=== PATIENT | male | born 1960 | race Caucasian/White ===

== ENCOUNTER 2021-04-15 09:06 | Observation (INO) ==
[2021-04-15] MEDS ORDERED: ASPIRIN CHEW 324 MG PO STA (09:34)
--- NOTE | 2021-04-15 09:57 | XRay Report ---
XR chest 1V portable CLINICAL HISTORY: Atypical chest pain COMPARISON STUDY: No previous studies for comparison. FINDINGS: The heart is mildly enlarged. There is no failure. There is no focal pulmonary consolidatio n. There are no pleural effusions. No pneumothorax is visualized.[ IMPRESSION: No active disease in the chest. ACT 112: Negative or not required by law. Electronically signed by: Shayne Bauer M.D. 04/15/2021 9:55 AM
--- NOTE | 2021-04-15 10:06 | Emergency Department Note ---
Impression & Plan Atrial fibrillation with rapid ventricular response, PAF (paroxysmal atrial fibrillation), Chest pain ED Provider Note NAME: RENAE RICH AGE: 60 SEX: M : 1960 ARRIVES VIA: Walk-In INFORMANT: Patient, ED PROVIDER(S): Shane Pedro DO CHIEF COMPLAINT: Chest pain HPI: The patient is a 60-year-old male who presented to the emergency department for an evaluation of chest pain. The patient has a history of hypertension. He does not have a history of cardiac disease established. He does not have a family doctor locally as he moved to the area last fall. The patient states he started noticing symptoms over the course of the last few days. The patient states he notices chest pain in the right upper chest wall. It also goes across his anterior chest. He sometimes notices palpitations and fast heart rate. He also notices some shortness of breath with exertion. He is not had similar symptoms in the past. He denies having any nausea or vomiting. He denies having any abdominal pain. He is noticed no lower extremity swelling. He does not a history of DVT or pulmonary embolism in the past. The patient states he went to [facility] and was referred to the emergency department because of his symptoms. He did have a Covid swab at that time which was negative. He does complain of a slight cough but it is not productive. He has had no fever or exposure to COVID-19 as far as he knows. The patient states his symptoms are significantly improved at this time. He was using ibuprofen with some relief. ROS: See above HPI for pertinent positives & negatives. A total of 10 systems reviewed and were otherwise negative. PAST MEDICAL HISTORY: See Below PAST SURGICAL HISTORY: See Below FAMILY HISTORY: See Below SOCIAL HISTORY: See Below HOME MEDICATIONS: See Below ALLERGIES: See Below VITALS: See Below PHYSICAL EXAMINATION: GENERAL: Patient is awake alert in no acute distress patient is resting comfortably and showing no signs of anxiety EYES: The conjunctivae are clear. The pupils are round and reactive. EARS, NOSE, MOUTH AND THROAT: The nose is without any evidence of any deformity. NECK: The neck is nontender and supple. RESPIRATORY: Normal respiratory effort is noted there is no evidence of wheezing rhonchi or rales CARDIOVASCULAR: Regular rate and rhythm noted there no murmurs rubs or gallops normal S1 normal S2. GASTROINTESTINAL: The abdomen is soft. Abdomen is nontender. MUSCULOSKELETAL/EXTREMITIES: There is no evidence of gross deformity full range of motion is noted in the hips and shoulders. SKIN: There is no obvious evidence of any rash. There are no petechiae, pallor or cyanosis noted. NEUROLOGIC: Patient is awake alert and oriented x3. MEDICAL DECISION MAKING: The patient is a 60-year-old male who presented to the emergency department for an evaluation of chest pain. The patient describes right-sided chest pain which was worse with inspiration. I discussed the patient's laboratory and radi ographic studies with him. He did have episodes of palpitations as well. While in the emergency department on the monitor he was noted to have episodes of paroxysmal atrial fibrillation. The patient's D-dimer was negative. Troponin did not show an elevation despite having ongoing symptoms greater than 6 hours. I do feel the patient's symptoms was likely due to his atrial fibrillation with rapid ventricular response. I discussed his case with [facility] The patient was treated with IV Cardizem. I will defer anticoagulation to the admitting team. The patient was agreeable with the plan. Triage Nursing notes reviewed. Prior medical records reviewed Vital Signs: reviewed and remarkable for elevated blood pressure and tachycardia. Differential diagnosis: Cardiac ischemia, aortic dissection, pulmonary embolism, pneumothorax, pneumonia, pericarditis, myocarditis, esophageal rupture, GERD, cholecystitis, pancreatitis, musculoskeletal, as well as other pathologies. ER treatment provided: See below Diagnostics interpreted by me: ECG: EKG was obtained in the emergency department. My interpretation is normal sinus rhythm at 81 bpm. There was sinus arrhythmia noted. Lateral ST depressions were noted. There is no ectopy. This was compared to a tracing that was done at [facility]. There is no significant changes noted. A second EKG was obtained in the emergency department. My interpretation is atrial flutter at 145 bpm. This was a change compared to the earlier tracing. Cardiac Monitoring: An order was placed for continuous cardiac monitoring. The monitor shows a rate of 80 bpm with sinus rhythm. Laboratory studies: As stated above and show below. Imaging studies: See below Consultation(s): 1045: I discussed this case with Dr. Luz. He is agreed to see the patient in the emergency department for further management and disposition. He [facility]. 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 Beliefs That Will Affect Care: None Current Living Situation: Spouse Other Information That Helps Us Care for You: No Feels Safe at Home: Yes Safety Concerns: Feels Safe At This Time Assistive Devices: BiPap and Glasses Allergies Allergies Allergy/AdvReac Type Severity Reaction Status Date / Time No Known Allergies Allergy Unverified 04/15/21 09:52 Home Meds Home Medications Medication Instructions Recorded Confirmed amlodipine 10 mg tablet 10 mg PO DAILY 04/15/21 04/15/21 atorvastatin 20 mg tablet 20 mg PO DAILY 04/15/21 04/15/21 azelastine 137 mcg (0.1 %) nasal 1 spray INTRANASAL DAILY 04/15/21 04/15/21 spray aerosol lisinopril 20 1 tab PO DAILY 04/15/21 04/15/21 mg-hydrochlorothiazide 25 mg tablet lorazepam 0.5 mg tablet 0.5 mg PO DAILY PRN 04/15/21 04/15/21 sertraline 100 mg tablet 50 mg PO DAILY 04/15/21 04/15/21 tadalafil 20 mg tablet 20 mg PO DAILY PRN 04/15/21 04/15/21 Results & Data (ED) Vital Signs Vital Signs - 24 hr 04/15/21 09:10 04/15/21 09:50 04/15/21 11:00 Temperature 36.8 C Temperature Source Skin Pulse Rate 80 92 H Pulse Rate [Apical] 140 H Pulse Rhythm Regular Pulse Rhythm [Apical] Irregular Pulse Strength [Apical] Respiratory Rate 18 16 Respiratory Effort / Characteristics Non-Labored Respiratory Depth Normal Blood Pressure 160/89 H Blood Pressure [Left Arm] 137/88 Blood Pressure Mean 112 Blood Pressure Mean [Left Arm] 104 Pulse Oximetry 97 98 98 Oxygen Delivery Method Room Air Room Air Sepsis Recent Fever Within 48 Hours No Sepsis New/Unexplained Change in Mental Status No Sepsis Action Taken by Nursing No Action Required 04/15/21 11:08 04/15/21 11:30 Temperature Temperature Source Pulse Rate Pulse Rate [Apical] 80 84 Pulse Rhythm Pulse Rhythm [Apical] Regular Regular Pulse Strength [Apical] Normal Respiratory Rate 16 16 Respiratory Effort / Characteristics Non-Labored Non-Labored Respiratory Depth Normal Normal Blood Pressure Blood Pressure [Left Arm] 174/88 H 138/78 Blood Pressure Mean Blood Pressure Mean [Left Arm] 116 98 Pulse Oximetry 98 97 Oxygen Delivery Method Room Air Room Air Sepsis Recent Fever Within 48 Hours Sepsis New/Unexplained Change in Mental Status Sepsis Action Taken by Nursing Laboratory Data Result diagrams: 04/15/21 09:50 04/15/21 09:50 Lab Results 04/15/21 04/15/21 04/15/21 Range/Units 09:50 09:50 09:50 WBC 8.88 (4.8-10.8) K/uL RBC 5.17 (4.7-6.1) M/uL Hgb 14.8 (14.0-18.0) g/dL Hct 43.1 (42-52) % MCV 83.4 (80-100) fL MCH 28.6 (25-34) pg MCHC 34.3 (32-36) g/dL RDW Std Deviation 42.0 (36.4-46.3) fL RDW Coeff of Gonzalo 13.8 (11.5-14.5) % Plt Count 220 (130-400) K/uL MPV 10.0 (7.4-10.4) fL Immature Gran % (Auto) 0.6 % Neut % (Auto) 75.3 % Lymph % (Auto) 15.5 % [place] % (Auto) 7.9 % Eos % (Auto) 0.5 % Baso % (Auto) 0.2 % Neut # (Auto) 6.69 H (1.4-6.5) K/uL Lymph # (Auto) 1.38 (1.2-3.4) K/uL [place] # (Auto) 0.70 H (0.11-0.59) K/uL Eos # (Auto) 0.04 (0-0.5) K/uL Baso # (Auto) 0.02 (0-0.2) K/uL Immature Gran # (Auto) 0.05 H (0.00-0.02) K/uL PT 10.5 (9.0-12.0) Seconds INR 1.0 (0.9-1.1) APTT 28.2 (21.0-31.0) Seconds PTT Ratio 1.1 D-Dimer 450 (0-500) ug/L FEU Sodium 137 (136-145) mmol/L Potassium 3.5 (3.5-5.1) mmol/L Chloride 103 (98-107) mmol/L Carbon Dioxide 28 (21-32) mmol/L Anion Gap 6.0 (3-11) BUN 14 (7-18) mg/dl Creatinine 1.16 (0.6-1.4) mg/dl Est Cr Clr Drug Dosing 113.9 ml/min Est GFR ( Amer) 78.9 ml/min Est GFR (Non-Af Amer) 68.1 ml/min BUN/Creatinine Ratio 12.3 (10-20) Glucose 103 H (70-99) mg/dl Calcium 9.3 (8.5-10.1) mg/dl Magnesium (1.8-2.4) mg/dl Total Bilirubin 1.1 H (0.2-1) mg/dl AST 20 (15-37) U/L ALT 24 (12-78) U/L Alkaline Phosphatase 62 (45-117) U/L Troponin I < 0.015 (0-0.045) ng/ml Total Protein 7.7 (6.4-8.2) gm/dl Albumin 3.7 (3.4-5.0) gm/dl Globulin 4.0 (2.5-4.0) gm/dl Albumin/Globulin Ratio 0.9 (0.9-2) TSH (0.300-4.500) uIu/ml COVID-19 Eval Order SARS-CoV-2 (PCR) (Negative) 04/15/21 04/15/21 04/15/21 Range/Units 09:50 11:15 11:15 WBC (4.8-10.8) K/uL RBC (4.7-6.1) M/uL Hgb (14.0-18.0) g/dL Hct (42-52) % MCV (80-100) fL MCH (25-34) pg MCHC (32-36) g/dL RDW Std Deviation (36.4-46.3) fL RDW Coeff of Gonzalo (11.5-14.5) % Plt Count (130-400) K/uL MPV (7.4-10.4) fL Immature Gran % (Auto) % Neut % (Auto) % Lymph % (Auto) % [place] % (Auto) % Eos % (Auto) % Baso % (Auto) % Neut # (Auto) (1.4-6.5) K/uL Lymph # (Auto) (1.2-3.4) K/uL [place] # (Auto) (0.11-0.59) K/uL Eos # (Auto) (0-0.5) K/uL Baso # (Auto) (0-0.2) K/uL Immature Gran # (Auto) (0.00-0.02) K/uL PT (9.0-12.0) Seconds INR (0.9-1.1) APTT (21.0-31.0) Seconds PTT Ratio D-Dimer (0-500) ug/L FEU Sodium (136-145) mmol/L Potassium (3.5-5.1) mmol/L Chloride (98-107) mmol/L Carbon Dioxide (21-32) mmol/L Anion Gap (3-11) BUN (7-18) mg/dl Creatinine (0.6-1.4) mg/dl Est Cr Clr Drug Dosing ml/min Est GFR ( Amer) ml/min Est GFR (Non-Af Amer) ml/min BUN/Creatinine Ratio (10-20) Glucose (70-99) mg/dl Calcium (8.5-10.1) mg/dl Magnesium 2.3 (1.8-2.4) mg/dl Total Bilirubin (0.2-1) mg/dl AST (15-37) U/L ALT (12-78) U/L Alkaline Phosphatase (45-117) U/L Troponin I (0-0.045) ng/ml Total Protein (6.4-8.2) gm/dl Albumin (3.4-5.0) gm/dl Globulin (2.5-4.0) gm/dl Albumin/Globulin Ratio (0.9-2) TSH 1.150 (0.300-4.500) uIu/ml COVID-19 Eval Order Covid19 at [facility] SARS-CoV-2 (PCR) NEGATIVE (Negative) Administered Medications Metoprolol Tartrate (Metoprolol Tartrate 25 Mg Tab) 25 mg PO BID DOT Stop: 05/15/21 14:20 Last Admin: 04/15/21 16:01 Dose: 25 mg Documented by: [id number] Miscellaneous (Azelastine: Order Awaiting Action) 1 ea N/A QS DOT Stop: 05/15/21 15:59 Last Admin: 04/15/21 15:35 Dose: Not Given Documented by: [id number] Discontinued Medications Aspirin (Aspirin Chew 324 Mg) 324 mg PO NOW STA Stop: 04/15/21 09:35 Last Admin: 04/15/21 09:55 Dose: 324 mg Documented by: [id number] Diltiazem HCl (Diltiazem Hcl 5 Mg/Ml 5 Ml Vial) 20 mg IV NOW STA Stop: 04/15/21 10:34 Last Admin: 04/15/21 11:01 Dose: 20 mg Documented by: [id number] Cosigned by: [id number] Imaging Data Radiologist's Impression: Chest X-Ray 04/15/21 09:27 XR chest 1V portable CLINICAL HISTORY: Atypical chest pain COMPARISON STUDY: No previous studies for comparison. FINDINGS: The heart is mildly enlarged. There is no failure. There is no focal pulmonary consolidation. There are no pleural effusions. No pneumothorax is visualized.[ IMPRESSION: No active disease in the chest. ACT 112: Negative or not required by law. Electronically signed by: Shayne Bauer M.D. 04/15/2021 9:55 AM Discharge Plan Visit Data Chief Complaint: Cardiac Assessment Stated Complaint: HIGH BP, TACHY, ABNORMAL EKG ED Provider: Shane Pedro Discharge Problem: Atrial fibrillation with rapid ventricular response, PAF (paroxysmal atrial fibrillation), Chest pain Patient Disposition: Admitted As Inpatient Condition: Good Discharge Instructions Interventions: ED Discharge Assessment Last Done: 04/15/21 14:37
[2021-04-15 10:07] LABS: Basophils # (auto) 0.02 K/uL (0-0.2); Basophils % (auto) 0.2 %; Eosinophils # (auto) 0.04 K/uL (0-0.5); Eosinophils % (auto) 0.5 %; Hematocrit (blood only) 43.1 % (42-52); Hemoglobin 14.8 g/dL (14.0-18.0); Immature Granulocytes # (auto) 0.05 K/uL (0.00-0.02); Immature Granulocytes % (auto) 0.6 %; Lymphocytes # (auto) 1.38 K/uL (1.2-3.4); Lymphocytes % (auto) 15.5 %; Mean Corpuscular Hemoglobin 28.6 pg (25-34); Mean Corpuscular Hgb Conc 34.3 g/dL (32-36); Mean Corpuscular Volume 83.4 fL (80-100); Monocytes % (auto) 7.9 %; Neutrophils # (auto) 6.69 K/uL (1.4-6.5); Neutrophils % (auto) 75.3 %; Platelet Count 220 K/uL (130-400); RDW Coefficient of Variation 13.8 % (11.5-14.5); Red Blood Count 5.17 M/uL (4.7-6.1); White Blood Count 8.88 K/uL (4.8-10.8)
[2021-04-15 10:19] LABS: D Dimer 450 ug/L FEU (0-500); Partial Thromboplastin Ratio 1.1; Partial Thromboplastin Time 28.2 Seconds (21.0-31.0); Prothrombin Time 10.5 Seconds (9.0-12.0)
[2021-04-15 10:25] LABS: Alanine Aminotransferase 24 U/L (12-78); Albumin Level 3.7 gm/dl (3.4-5.0); Aspartate Aminotransferase 20 U/L (15-37); BUN Creatinine Ratio 12.3 (10-20); Blood Urea Nitrogen 14 mg/dl (7-18); Calcium 9.3 mg/dl (8.5-10.1); Carbon Dioxide 28 mmol/L (21-32); Chloride 103 mmol/L (98-107); Creatinine Clr Calc Pharmacy 113.9 ml/min; Est GFR (African American) 78.9 ml/min; Est GFR (Non-African American) 68.1 ml/min; Glucose 103 mg/dl (70-99); Potassium 3.5 mmol/L (3.5-5.1); Sodium 137 mmol/L (136-145)
[2021-04-15 10:30] LABS: Albumin Globulin Ratio 0.9 (0.9-2); Alkaline Phosphatase 62 U/L (45-117); Bilirubin,Total 1.1 mg/dl (0.2-1); Total Protein 7.7 gm/dl (6.4-8.2); Troponin I < 0.015 ng/ml (0-0.045)
[2021-04-15] MEDS ORDERED: dilTIAZem HCl 5 MG/ML 5 ML VIAL IV STA (10:33)
--- NOTE | 2021-04-15 11:25 | History & Physical Report ---
Date of Service April 15, 2021 Assessment & Plan (1) PAF (paroxysmal atrial fibrillation): Plan: Placed in monitored observation on I will start metoprolol 25 mg every 12 hours Check 2D echo Trend troponins TSH ordered and is pending [id number] were calculated at 1 with available information. Patient was given full dose aspirin, will avoid full dose anticoagulation for now. Will ask cardiology to eval for further recommendations (2) Sleep apnea with use of continuous positive airway pressure (CPAP): Plan: Will order CPAP for use as inpatient Considering new symptoms and times since I last sleep study, may need to reevaluate with titration study as an outpatient (3) History of hypertension: Plan: For now, will continue amlodipine 10 mg, lisinopril/hydrochlorothiazide 20/25 Addition of metoprolol as noted above, adjust further as needed (4) History of high cholesterol: Plan: Continue atorvastatin 20 mg Check fasting lipid panel, [id number] History of Present Illness Chief Complaint: Chest pain Primary Care Provider: NO PCP This is a 60-year-old male with past medical history of hypertension, hyperlipi demia, and sleep apnea on CPAP that presents today complaining of intermittent chest pain. Patient is a good historian. Patient tells me that over the past several days he has been having very inter mittent chest pain. This not related to activity. It is vague and feels almost like reflux. It tends to be self-limited. He does occasionally notice palpitation with this but denies any diaphoresis, headache, or lightheadedness with this. There may be some mild dyspnea exertion during these periods of time. He has not noticed any lower extremity edema, cough, or other issues. Patient is new to the area and does not have a primary care provider. He went to [facility] and describes symptoms those sent to the emergency room for further evaluation. In the ER, patient was initially found to be asymptomatic with normal work-up, but then had an episode of chest pain. Monitor showed atrial fibrillation with a rate of 145 and as symptoms were similar to those on presentation. Patient se lf converted back to normal sinus rhythm. During my interview, I did notice several periods that were atrial fibrillation with a rapid rate that were also supplemented. At this time, the patient is no acute distress. He is anxious considering diagnosis. Further recollection, he thinks he may have been having symptoms that were mild but similar to this in the past. Of note, patient does have a history of sleep apnea but he tells me he only had one sleep study back in 2002 when the CPAP was prescribed and has not had a reevaluation since. Allergies Allergy/AdvReac Type Severity Reaction Status Date / Time No Known Allergies Allergy Unverified 04/15/21 09:52 Home Medications Medication Instructions Recorded Confirmed Type amlodipine 10 mg tablet 10 mg PO DAILY 04/15/21 04/15/21 History atorvastatin 20 mg tablet 20 mg PO DAILY 04/15/21 04/15/21 History azelastine 137 mcg (0.1 %) nasal 1 spray INTRANASAL DAILY 04/15/21 04/15/21 History spray aerosol lisinopril 20 1 tab PO DAILY 04/15/21 04/15/21 History mg-hydrochlorothiazide 25 mg tablet lorazepam 0.5 mg tablet 0.5 mg PO DAILY PRN 04/15/21 04/15/21 History sertraline 100 mg tablet 50 mg PO DAILY 04/15/21 04/15/21 History tadalafil 20 mg tablet 20 mg PO DAILY PRN 04/15/21 04/15/21 History Past Med/Surg History Medical History (Updated 04/15/21 @ 11:30 by Greg Luz DO) History of high cholesterol History of hypertension Surgical History History of tonsillectomy Social History Smoking Status: Never smoker Feels Safe at Home: Yes Review of Systems Constitutional: no fever, no chills, no weakness, no weight loss and no weight gain Eyes: as per Subjective / HPI Respiratory: + dyspnea on exertion; no cough, no chest congestion, no dyspnea, no hemoptysis and no pain on inspiration Cardiovascular: + chest pain and + dyspnea on exertion; no orthopnea, no palpitations, no lightheadedness, no syncope, no edema and no calf pain Gastrointestinal: no abdominal pain, no nausea, no vomiting, no constipation and no diarrhea/loose stools Musculoskeletal: no back pain, no neck pain, no joint pain, no stiffness and no myalgia Integumentary: no rash Neurologic: no gait abnormality, no unsteadiness, no falls and no generalized weakness Physical Exam Constitutional: cooperative; no acute distress Neck: trachea midline, no thyromegaly Respiratory: normal respiratory effort Auscultation: lungs clear to auscultation bilaterally; no crackles, no rales, no rhonchi and no wheezes Cardiovascular: Rate/Rhythm: regular rate and regular rhythm Heart Sounds: normal S1 and normal S2 Gastrointestinal (Abdomen): Inspection/Auscultation: abdomen normal to inspection Percussion/Palpation: abdomen soft; abdomen nontender, no guarding, abdomen not rigid and no hepatosplenomegaly Skin: no rashes, warm and dry Results & Data Results & Data ([facility]) Vital Signs (Past 12 Hours) Vital Signs Temp Pulse Pulse Resp BP BP Pulse Ox 04/15/21 11:08 80 16 174/88 H 98 04/15/21 11:00 92 H 140 H 16 137/88 98 04/15/21 09:50 98 04/15/21 09:10 36.8 C 80 18 160/89 H 97 Laboratory Results Laboratory Results WBC 8.88 K/uL (4.8-10.8) 04/15/21 09:50 RBC 5.17 M/uL (4.7-6.1) 04/15/21 09:50 Hgb 14.8 g/dL (14.0-18.0) 04/15/21 09:50 Hct 43.1 % (42-52) 04/15/21 09:50 MCV 83.4 fL (80-100) 04/15/21 09:50 MCH 28.6 pg (25-34) 04/15/21 09:50 MCHC 34.3 g/dL (32-36) 04/15/21 09:50 RDW Std Deviation 42.0 fL (36.4-46.3) 04/15/21 09:50 RDW Coeff of Gonzalo 13.8 % (11.5-14.5) 04/15/21 09:50 Plt Count 220 K/uL (130-400) 04/15/21 09:50 MPV 10.0 fL (7.4-10.4) 04/15/21 09:50 Immature Gran % (Auto) 0.6 % 04/15/21 09:50 Neut % (Auto) 75.3 % 04/15/21 09:50 Lymph % (Auto) 15.5 % 04/15/21 09:50 [place] % (Auto) 7.9 % 04/15/21 09:50 Eos % (Auto) 0.5 % 04/15/21 09:50 Baso % (Auto) 0.2 % 04/15/21 09:50 Neut # (Auto) 6.69 K/uL (1.4-6.5) H 04/15/21 09:50 Lymph # (Auto) 1.38 K/uL (1.2-3.4) 04/15/21 09:50 [place] # (Auto) 0.70 K/uL (0.11-0.59) H 04/15/21 09:50 Eos # (Auto) 0.04 K/uL (0-0.5) 04/15/21 09:50 Baso # (Auto) 0.02 K/uL (0-0.2) 04/15/21 09:50 Immature Gran # (Auto) 0.05 K/uL (0.00-0.02) H 04/15/21 09:50 PT 10.5 Seconds (9.0-12.0) 04/15/21 09:50 INR 1.0 (0.9-1.1) 04/15/21 09:50 APTT 28.2 Seconds (21.0-31.0) 04/15/21 09:50 PTT Ratio 1.1 04/15/21 09:50 D-Dimer 450 ug/L FEU (0-500) 04/15/21 09:50 Sodium 137 mmol/L (136-145) 04/15/21 09:50 Potassium 3.5 mmol/L (3.5-5.1) 04/15/21 09:50 Chloride 103 mmol/L (98-107) 04/15/21 09:50 Carbon Dioxide 28 mmol/L (21-32) 04/15/21 09:50 Anion Gap 6.0 (3-11) 04/15/21 09:50 BUN 14 mg/dl (7-18) 04/15/21 09:50 Creatinine 1.16 mg/dl (0.6-1.4) 04/15/21 09:50 Est Cr Clr Drug Dosing 113.9 ml/min 04/15/21 09:50 Est GFR ( Amer) 78.9 ml/min 04/15/21 09:50 Est GFR (Non-Af Amer) 68.1 ml/min 04/15/21 09:50 BUN/Creatinine Ratio 12.3 (10-20) 04/15/21 09:50 Glucose 103 mg/dl (70-99) H 04/15/21 09:50 Calcium 9.3 mg/dl (8.5-10.1) 04/15/21 09:50 Total Bilirubin 1.1 mg/dl (0.2-1) H 04/15/21 09:50 AST 20 U/L (15-37) 04/15/21 09:50 ALT 24 U/L (12-78) 04/15/21 09:50 Alkaline Phosphatase 62 U/L (45-117) 04/15/21 09:50 Troponin I < 0.015 ng/ml (0-0.045) 04/15/21 09:50 Total Protein 7.7 gm/dl (6.4-8.2) 04/15/21 09:50 Albumin 3.7 gm/dl (3.4-5.0) 04/15/21 09:50 Globulin 4.0 gm/dl (2.5-4.0) 04/15/21 09:50 Albumin/Globulin Ratio 0.9 (0.9-2) 04/15/21 09:50 Impressions Chest X-Ray 04/15/21 09:27 XR chest 1V portable CLINICAL HISTORY: Atypical chest pain COMPARISON STUDY: No previous studies for comparison. FINDINGS: The heart is mildly enlarged. There is no failure. There is no focal pulmonary consolidation. There are no pleural effusions. No pneumothorax is visualized.[ IMPRESSION: No active disease in the chest. ACT 112: Negative or not required by law. Electronically signed by: Shayne Bauer M.D. 04/15/2021 9:55 AM PG Care Time/CCT Total # of Minutes Spent Total Time Spent with Patient: Total time spent is greater than 50% in coordination of care (as documented) at patient's floor/unit and/or counseling patient: Coding Level of Care Code INT OBSERVATION CARE 70M LVL 3 Diagnoses Sleep apnea with use of continuous positive airway pressure (CPAP) G47.30 PAF (paroxysmal atrial fibrillation) I48.0 History of hypertension Z86.79 History of high cholesterol Z86.39
[2021-04-15 12:19] LABS: Magnesium 2.3 mg/dl (1.8-2.4); Thyroid Stimulating Hormone 1.15 uIu/ml (0.300-4.500)
[2021-04-15] MEDS ORDERED: ACETAMINOPHEN 325 MG TAB PO PRN (14:21)
[2021-04-15] MEDS: METOPROLOL TARTRATE 25 MG TAB PO SCH ×2 (16:01→21:03)
--- NOTE | 2021-04-15 16:26 | Electrocardiogram Report ---
Test Reason : Blood Pressure : / mmHG Vent. Rate : 081 BPM Atrial Rate : 098 BPM P-R Int : 150 ms QRS Dur : 096 ms QT Int : 358 ms P-R-T Axes : 049 051 039 degrees QTc Int : 415 ms Sinus rhythm with marked sinus arrhythmia Nonspecific ST abnormality Abnormal ECG No previous ECGs available Confirmed by Shane Sosa ([id number]) on 04/15/2021 4:25:47 PM Referred By: REFERRED SELF Confirmed By:Shane Sosa
--- NOTE | 2021-04-15 16:27 | Electrocardiogram Report ---
Test Reason : Blood Pressure : / mmHG Vent. Rate : 145 BPM Atrial Rate : 288 BPM P-R Int : 000 ms QRS Dur : 090 ms QT Int : 332 ms P-R-T Axes : 000 063 -64 degrees QTc Int : 515 ms Atrial flutter with variable A-V block Nonspecific ST and T wave abnormality Abnormal ECG When compared with ECG of 15-APR-2021 09:15, (unconfirmed) Atrial flutter has replaced Sinus rhythm Vent. rate has increased BY [address] now depressed in Inferior leads Nonspecific T wave abnormality, worse in Inferior leads Confirmed by Shane Sosa ([id number]) on 04/15/2021 4:26:53 PM Referred By: REFERRED SELF Confirmed By:Shane Sosa
--- NOTE | 2021-04-15 16:41 | Cardiology Consultation ---
Date of Consultation April 15, 2021 Assessment & Plan (1) PAF (paroxysmal atrial fibrillation): -Has also demonstrated paroxysmal atrial flutter. -Agree with metoprolol tartrate. We may need to increase his dose. -Would start Eliquis 5 mg b.i.d.. -Echocardiogram pending. (2) History of hypertension: -Adequate control on current regimen. (3) History of high cholesterol: -Continue atorvastatin. History of Present Illness Attending Physician: Greg Luz DO History of Present Illness Mr. Lagos is a 60-year-old male admitted earlier today with new onset atrial fibrillation / flutter. This consultation was ordered to assist in his cardiac management. The patient was in his usual state of health until approximately 1 week ago. He was noticing a vague sensation in the upper sternal region which would occur spontaneously and lasts several minutes. However, earlier today, the patient noted palpitations and presented to an urgent care center for evaluation. An EKG noted an atrial dysrhythmia and he was sent to the emergency room for [facility] er care. On arrival here, patient was in sinus rhythm, however, developed a Jacquelyn fibrillation with a rapid ventricular response. Twelve lead EKG actually showed atrial flutter with variable response. Hospitalization was recommended. Retrospectively, patient feels that he is noted a similar palpitations over the last year or 2. A typically occur spontaneously and only last for several minut es. We have had a long discussion regarding the management of atrial dysrhythmias. Past medical and surgical history 1. Hypertension 2. Hypercholesterolemia 3. Obesity 4. Obstructive sleep apnea 5. Tonsillectomy Social history and lives with his . seafood and service meat manager for [employer] No tobacco alcohol Family history Father developed atrial fibrillation age 75. Currently 86. Mother at 75 from pancreatic cancer. Sister is alive and well Allergies Allergy/AdvReac Type Severity Reaction Status Date / Time No Known Allergies Allergy Unverified 04/15/21 09:52 Home Medications Medication Instructions Recorded Confirmed Type amlodipine 10 mg tablet 10 mg PO DAILY 04/15/21 04/15/21 History atorvastatin 20 mg tablet 20 mg PO DAILY 04/15/21 04/15/21 History azelastine 137 mcg (0.1 %) nasal 1 spray INTRANASAL DAILY 04/15/21 04/15/21 H istory spray aerosol lisinopril 20 1 tab PO DAILY 04/15/21 04/15/21 History mg-hydrochlorothiazide 25 mg tablet lorazepam 0.5 mg tablet 0.5 mg PO DAILY PRN 04/15/21 04/15/21 History sertraline 100 mg tablet 50 mg PO DAILY 04/15/21 04/15/21 History tadalafil 20 mg tablet 20 mg PO DAILY PRN 04/15/21 04/15/21 History Patient History Medical History (Updated 04/15/21 @ 11:30 by Greg Luz DO) History of high cholesterol History of hypertension Surgical History History of tonsillectomy Social History Smoking Status: Never smoker Hx Alcohol Use: No Hx Substance Use: No [employer] Required: No Beliefs That Will Affect Care: None Current Living Situation: Spouse Other Information That Helps Us Care for You: No Feels Safe at Home: Yes Safety Concerns: Feels Safe At This Time Assistive Devices: BiPap and Glasses Physical Exam Physical Exam: In general this is an obese white male lying supine in bed without complaints. HEENT exam is negative. Neck is supple with full carotid upstrokes. No carotid bruits. Jugular is pressure is flat at 90. There is no thyromegaly. Cardiovascular exam reveals a regular rhythm with a normal S1 and S2. No S3, S4, or murmurs are noted. Lungs are clear without rales, rhonchi, or wheezes. Abdomen is soft and nontender without bruits. Extremities reveal intact radial artery pulses bilaterally. There is no peripheral edema. Results & Data ([facility]) Vital Signs (Past 12 Hours) Vital Signs Temp Pulse Pulse Resp BP BP Pulse Ox 04/15/21 16:07 37.0 C 95 H 19 148/90 H 94 04/15/21 14:57 86 04/15/21 14:23 37.2 C 87 21 160/86 H 98 04/15/21 13:00 82 16 143/73 H 95 04/15/21 11:30 84 16 138/78 97 04/15/21 11:08 80 16 174/88 H 98 04/15/21 11:00 92 H 140 H 16 137/88 98 04/15/21 09:50 98 04/15/21 09:10 36.8 C 80 18 160/89 H 97 Laboratory Results Troponin I levels undetectable less than 0.015. TSH is normal at 1.15. Electrolytes noted sodium 137, potassium 3.5, BUN 14, creatinine 1.16, and glucose of 103. Magnesium level is normal at 2.3. Diagnostic Findings EKG notes atrial flutter with variable conduction. Chest x-ray shows no acute disease. PG Care Time/CCT Total # of Minutes Spent Total Time Spent with Patient: Total time spent is greater than 50% in coordination of care (as documented) at patient's floor/unit and/or counseling patient: Coding Level of Care Code 55399 Office/OBS Consult Lvl 4 Diagnoses PAF (paroxysmal atrial fibrillation) I48.0 History of hypertension Z86.79 History of high cholesterol Z86.39
--- NOTE | 2021-04-15 16:50 | XCELERA ---
[id number]
[2021-04-15] MEDS: APIXABAN 5 MG TABLET PO SCH (21:02)
[2021-04-15] MEDS: LORazepam 0.5 MG TAB PO PRN (22:34)
[2021-04-16 02:44] LABS: BUN Creatinine Ratio 11.8 (10-20); Blood Urea Nitrogen 14 mg/dl (7-18); Calcium 8.8 mg/dl (8.5-10.1); Carbon Dioxide 33 mmol/L (21-32); Chloride 105 mmol/L (98-107); Creatinine Clr Calc Pharmacy 113.9 ml/min; Est GFR (African American) 78.9 ml/min; Est GFR (Non-African American) 68.1 ml/min; Glucose 99 mg/dl (70-99); Magnesium 2.4 mg/dl (1.8-2.4); Potassium 3.4 mmol/L (3.5-5.1); Sodium 140 mmol/L (136-145)
[2021-04-16 02:49] LABS: Chol HDL Ratio 4; Cholesterol 132 mg/dl (0-200); HDL Cholesterol 34 mg/dl; LDL Cholesterol Calculated 77 mg/dl; Triglycerides 103 mg/dl (0-150); Troponin I < 0.015 ng/ml (0-0.045); VLDL Cholesterol 21 mg/dl
[2021-04-16 07:47] LABS: Estimated Average Glucose 103 mg/dl; Hemoglobin A1C 5.2 % (4.5-5.6)
--- NOTE | 2021-04-16 08:24 | Electrocardiogram Report ---
Test Reason : Blood Pressure : / mmHG Vent. Rate : 079 BPM Atrial Rate : 079 BPM P-R Int : 150 ms QRS Dur : 100 ms QT Int : 390 ms P-R-T Axes : 059 039 027 degrees QTc Int : 447 ms Normal sinus rhythm Low voltage QRS Borderline ECG When compared with ECG of 15-APR-2021 10:14, Sinus rhythm has replaced Atrial flutter Vent. rate has decreased BY 66 BPM Confirmed by Leon Henson ([id number]) on 04/16/2021 8:24:01 AM Referred By: REFERRED SELF Confirmed By:Leon Henson
[2021-04-16] MEDS ORDERED: Nursing to Pharmacy Communication SCH (08:30)
[2021-04-16] MEDS: LISINOPRIL/HCTZ 20/25MG 1 TAB PO SCH (08:40)
[2021-04-16] MEDS: SERTRALINE HCL 50 MG TABLET PO SCH (08:40)
[2021-04-16] MEDS: ATORVASTATIN 20 MG TAB PO SCH (08:40)
[2021-04-16] MEDS: amLODIPine BESYLATE 5 MG TAB PO SCH (08:40)
[2021-04-16] MEDS: APIXABAN 5 MG TABLET PO SCH ×2 (08:40→20:14)
[2021-04-16] MEDS: ASPIRIN CHEW 324 MG PO SCH (08:46)
[2021-04-16] MEDS: METOPROLOL TARTRATE 25 MG TAB PO SCH (08:53)
[2021-04-16] MEDS ORDERED: METOPROLOL TARTRATE 50 MG TAB PO SCH (09:00)
--- NOTE | 2021-04-16 12:43 | Cardiology Progress Note ---
Date of Service April 16, 2021 Assessment & Plan (1) PAF (paroxysmal atrial fibrillation): Plan: -also demonstrated paroxysmal atrial flutter. -sinus bradycardia with blocked PACs noted. -which change to metoprolol succinate 25 mg daily. -tolerating Eliquis 5 mg b.i.d.. -echocardiogram notes normal left ventricular systolic function. -stable for hospital discharge. -follow-up with me in several weeks. (2) History of hypertension: Plan: -adequate control on current regimen. (3) History of high cholesterol: Plan: -continue atorvastatin. Admission and Anticipated Discharge Date Admission Date: April 15, 2021 Subjective The patient is resting comfortably in bed without complaints of chest pain or dyspnea. Does note an occasional short-lived palpitation. No sustained palpitations. Questions were answered in detail. Physical Exam Physical Exam: In general this is an obese white male lying supine in bed without complaints. HEENT exam is negative. Neck is supple with full carotid upstrokes. No carotid bruits. Jugular is pressure is flat at 90. There is no thyromegaly. Cardiovascular exam reveals a regular rhythm with a normal S1 and S2. No S3, S4, or murmurs are noted. Lungs are clear without rales, rhonchi, or wheezes. Abdomen is soft and nontender without bruits. Extremities reveal intact radial artery pulses bilaterally. There is no peripheral edema. Results & Data ([facility]) Vital Signs (Past 12 Hours) Vital Signs Temp Pulse Pulse Resp BP Pulse Ox 04/16/21 11:42 36.8 C 78 18 137/84 93 04/16/21 08:02 36.8 C 86 20 145/90 H 95 04/16/21 08:00 74 04/16/21 03:58 37.0 C 73 19 148/93 H 95 Laboratory Results Troponin I level less than 0.015 x 4. Diagnostic Findings color television console monitor notes sinus bradycardia with occasional blocked PACs. PG Care Time/CCT Total # of Minutes Spent Total Time Spent with Patient: Total time spent is greater than 50% in coordination of care (as documented) at patient's floor/unit and/or counseling patient: Coding Level of Care Code 38641 Subseq Hosp Care Lvl 3 Diagnoses PAF (paroxysmal atrial fibrillation) I48.0 History of hypertension Z86.79 History of high cholesterol Z86.39
--- NOTE | 2021-04-16 15:18 | Hospitalist Progress Note ---
Date of Service April 16, 2021 Assessment & Plan (1) PAF (paroxysmal atrial fibrillation): Plan: new onset for this patient, had some symptoms when in RVR now he is in sinus rhythm most of the time, very occasionally goes into afib/aflutter having some bradycardia that is short lived, no symptoms will reduce metoprolol to 12.5mg BID, see how his HR trends overnight likely start Toprol 12.5mg PO daily tomorrow started on Eliquis 5mg BID for anticoagulation echo: EF 55-60%, no wall motion changes discussed with Dr. Sosa, appreciate his input (2) Sleep apnea with use of continuous positive airway pressure (CPAP): Plan: Will order CPAP for use as inpatient Considering new symptoms and times since I last sleep study, may need to reevaluate with titration study as an outpatient (3) History of hypertension: Plan: For now, will continue amlodipine 10 mg, lisinopril/hydrochlorothiazide 20/25 Addition of metoprolol as noted above BP stable (4) History of high cholesterol: Plan: Continue atorvastatin 20 mg Check fasting lipid panel, hgba1c Admission and Anticipated Discharge Date Admission Date: April 15, 2021 Subjective patient very anxious, but overall feeling better, occasionally has palpitations, no chest pain or pressure breathing is stable, eating well, no fever/chills, no nausea reviewed chart, reviewed tele, d/w Dr. Sosa mostly in sinus rhythm, very occasionally has aflutter with rates 100's more often, he is going bradycardic with rates in the 40's reviewed with Dr. Sosa, he says this is PACs that are not conducted the patient does not have any symptoms when he is bradycardic, does not correlate with sleeping or moving bowels etc, happens randomly discussed plan with him, will reduce metoprolol to 12.5mg BID Review of Systems Review of Systems: All systems reviewed & are unremarkable except as noted in Subjective Physical Exam Constitutional: well developed, + morbidly obese and comfortable; no acute distress Neck: trachea midline, no thyromegaly + thick neck Respiratory: normal respiratory effort, lungs clear to auscultation Cardiovascular: RRR, no murmur, no edema Gastrointestinal (Abdomen): normal bowel sounds, soft, nontender, no hepatosplenomegaly Musculoskeletal: no cyanosis or clubbing, extremities motor strength 5/5 Skin: no rashes, warm and dry Neurologic: patellar DTR's 2+ bilat, sensation intact and PERRL, EOMI, accommodation nl, no face palsy, no dysarthria Psychiatric: A+Ox3, euthymic affect Results & Data Results & Data ([facility]) Vital Signs (Past 12 Hours) Vital Signs Temp Pulse Pulse Resp BP Pulse Ox 04/16/21 15:12 37.1 C 79 18 137/78 96 04/16/21 11:42 36.8 C 78 18 137/84 93 04/16/21 08:02 36.8 C 86 20 145/90 H 95 04/16/21 08:00 74 04/16/21 03:58 37.0 C 73 19 148/93 H 95 Medications Administered Current Inpatient Medications Acetaminophen (Acetaminophen 325 Mg Tab) 650 mg PO Q4H PRN PRN Reason: Pain or Fever Stop: 05/15/21 14:20 Amlodipine Besylate (Amlodipine Besylate 5 Mg Tab) 10 mg PO DAILY DOT Stop: 05/16/21 08:59 Last Admin: 04/16/21 08:40 Dose: 10 mg Documented by: Apixaban (Apixaban 5 Mg Tablet) 5 mg PO BID DOT Stop: 05/15/21 20:59 Last Admin: 04/16/21 20:14 Dose: 5 mg Documented by: Aspirin (Aspirin Chew 324 Mg) 324 mg PO DAILY DOT Stop: 05/16/21 08:59 Last Admin: 04/16/21 08:46 Dose: 324 mg Documented by: Atorvastatin Calcium (Atorvastatin 20 Mg Tab) 20 mg PO DAILY DOT Stop: 05/16/21 08:59 Last Admin: 04/16/21 08:40 Dose: 20 mg Documented by: Lisinopril/HCTZ (Lisinopril/Hctz 20/25mg 1 Tab) 1 tab PO DAILY DOT Stop: 05/16/21 08:59 Last Admin: 04/16/21 08:40 Dose: 1 tab Documented by: Lorazepam (Lorazepam 0.5 Mg Tab) 0.5 mg PO DAILY PRN PRN Reason: Anxiety Stop: 05/15/21 14:20 Last Admin: 04/16/21 22:05 Dose: 0.5 mg Documented by: Metoprolol Tartrate (Metoprolol Tartrate 25 Mg Tab) 12.5 mg PO BID DOT Stop: 05/16/21 20:59 Last Admin: 04/16/21 20:15 Dose: 12.5 mg Documented by: Miscellaneous (Azelastine: Order Awaiting Action) 1 ea N/A QS DOT Stop: 05/15/21 15:59 Last Admin: 04/17/21 01:06 Dose: Not Given Documented by: Sertraline HCl (Sertraline Hcl 50 Mg Tablet) 50 mg PO DAILY DOT Stop: 05/16/21 08:59 Last Admin: 04/16/21 08:40 Dose: 50 mg Documented by: PG Care Time/CCT Total # of Minutes Spent Total Time Spent: 33 Total Time Spent with Patient: Total time spent is greater than 50% in coordination of care (as documented) at patient's floor/unit and/or counseling patient: two separate visits to patient's room, discussed with him, discussed with Dr. Sosa Coding Level of Care Code 22115 Subseq Obs Care Lvl 3 (25 - SIGNIFICANT, SEPARATELY IDENTIFIABLE ) Diagnoses PAF (paroxysmal atrial fibrillation) I48.0 Sleep apnea with use of continuous positive airway pressure (CPAP) G47.30 History of hypertension Z86.79 History of high cholesterol Z86.39
[2021-04-16] MEDS ORDERED: METOPROLOL TARTRATE 25 MG TAB PO SCH (21:00)
[2021-04-16] MEDS: LORazepam 0.5 MG TAB PO PRN (22:05)
[2021-04-17] MEDS ORDERED: METOPROLOL SUCC 25MG EXT REL TAB PO SCH (09:00)
[2021-04-17] MEDS: amLODIPine BESYLATE 5 MG TAB PO SCH (09:19)
[2021-04-17] MEDS: APIXABAN 5 MG TABLET PO SCH (09:20)
[2021-04-17] MEDS: SERTRALINE HCL 50 MG TABLET PO SCH (09:20)
[2021-04-17] MEDS: LISINOPRIL/HCTZ 20/25MG 1 TAB PO SCH (09:21)
[2021-04-17] MEDS: ATORVASTATIN 20 MG TAB PO SCH (09:21)
--- NOTE | 2021-04-17 09:21 | Electrocardiogram Report ---
Test Reason : Blood Pressure : / mmHG Vent. Rate : 072 BPM Atrial Rate : 072 BPM P-R Int : 150 ms QRS Dur : 104 ms QT Int : 408 ms P-R-T Axes : 046 034 039 degrees QTc Int : 446 ms Normal sinus rhythm Normal ECG When compared with ECG of 16-APR-2021 05:47, No significant change was found Confirmed by Leon Henson ([id number]) on 04/17/2021 9:20:59 AM Referred By: REFERRED SELF Confirmed By:Leon Henson
[2021-04-17] MEDS: ASPIRIN CHEW 324 MG PO SCH (11:01)
[2021-04-17 11:43] VITALS: BP 151/77; PULSE 62; TEMP 98.4; O2SAT 93
--- NOTE | 2021-04-17 12:01 | Discharge Summary ---
Date of Service April 17, 2021 Admission HPI Per Admitting Provider This is a 60-year-old male with past medical history of hypertension, hyperlipidemia, and sleep apnea on CPAP that presents today complaining of intermittent chest pain. Patient is a good historian. Patient tells me that over the past several days he has been having very intermittent chest pain. This not related to activity. It is vague and feels almost like reflux. It tends to be self-limited. He does occasionally notice palpitation with this but denies any diaphoresis, headache, or lightheadedness with this. There may be some mild dyspnea exertion during these periods of time. He has not noticed any lower extremity edema, cough, or other issues. Patient is new to the area and does not have a primary care provider. He went to [facility] and describes symptoms those sent to the emergency room for josh breen evaluation. In the ER, patient was initially found to be asymptomatic with normal work-up, but then had an episode of chest pain. Monitor showed atrial fibrillation with a rate of 145 and as symptoms were similar to those on presentation. Patient self converted back to normal sinus rhythm. During my interview, I did notice several periods that were atrial fibrillation with a rapid rate that were also supplemented. At this time, the patient is no acute distress. He is anxious considering diagnosis. Further recollection, he thinks he may have been having symptoms that were mild but similar to this in the past. Of note, patient does have a history of sleep apnea but he tells me he only had one sleep study back in 2002 when the CPAP was prescribed and has not had a reevaluation since. Principal Diagnosis Paroxysmal atrial flutter/fibrillation Discharge Exam Constitutional well developed, + morbidly obese and comfortable; no acute distress Neck trachea midline, no thyromegaly + thick neck Respiratory normal respiratory effort, lungs clear to auscultation Cardiovascular RRR, no murmur, no edema Gastrointestinal (Abdomen) normal bowel sounds, soft, nontender, no hepatosplenomegaly Musculoskeletal no cyanosis or clubbing, extremities motor strength 5/5 Skin no rashes, warm and dry Neurologic patellar DTR's 2+ bilat, sensation intact and PERRL, EOMI, accommodation nl, no face palsy, no dysarthria Psychiatric A+Ox3, euthymic affect Discharge Data Allergies Allergy/AdvReac Type Severity Reaction Status Date / Time No Known Allergies Allergy Unverified 04/15/21 09:52 Consultations 04/15/21 10:48 ED Decision to Admit Stat 04/15/21 14:21 Consult Cardiology Routine Hospital Course (1) PAF (paroxysmal atrial fibrillation): new onset for this patient, had some symptoms when in RVR now he is in sinus rhythm most of the time, very occasionally goes into afib/aflutter (less than 60 seconds) having some bradycardia that is short lived, no symptoms (this is PAC's that are not conducted) start Toprol 12.5mg PO daily for rate/rhythm control started on Eliquis 5mg BID for anticoagulation echo: EF 55-60%, no wall motion changes discussed with Dr. Sosa, appreciate his input, stable for discharge, will follow up with new PCP on 04/[address] Sosa in a few weeks (2) Sleep apnea with use of continuous positive airway pressure (CPAP): Will order CPAP for use as inpatient Consider a repeat sleep study in near future as his last one was 18 years ago recommend weight loss to help with sleep apnea (3) History of hypertension: continue amlodipine 10 mg, lisinopril/hydrochlorothiazide 20/25 Addition of metoprolol as noted above BP slightly high (4) History of high cholesterol: Continue atorvastatin 20 mg Check fasting lipid panel, hgba1c (5) Morbid obesity: weight is 370lbs discussed healthy weight loss strategies discussed reasonable initial goal would be 10-20% body weight which would be 40- 80 lbs he is motivated, will follow up with PCP Total Time Total Time Spent Total Time Spent (In Minutes): 40 Discharge Plan Discharge Items Patient Disposition: Home - Self-Care Reason For Visit: PAF Discharge Diagnosis: Paroxysmal atrial flutter Obesity Condition on Discharge: Good Goals: take Toprol and Eliquis for atrial flutter goal of 10-20% weight loss Activity: Resume your previous activity Non-emergency contact: Primary Care Provider Call non-emergency contact if: you have any medication questions Follow-up/Referrals: Shane Sosa MD [Physician] - (3-4 weeks atrial flutter) Franklin Diego DO [Primary Care Provider] - 04/23/21 2:00 pm (A hospital follow up appointment with primary care physician Dr. Franklin Diego has been scheduled for you on 04/23 at 2pm. If you are unable to make this appointment, please call [phone] to reschedule. ) Diet: Heart Healthy Add Attending Provider Instructions: Medications: - TOPROL: 12.5mg daily for control of atrial flutter/fibrillation - ELIQUIS: 5mg twice a day for anticoagulation, prevent strokes Atrial flutter/fibrillation: paroxysmal rates/rhythm controlled with Toprol 12.5mg daily, take every morning take Eliquis for stroke prevention your echocardiogram shows your heart is stroke, normal ejection fraction Obesity: as we discussed, work on eating less calories, cut down intake by 75%, focus on eating vegetables, protein, less carbohydrates focus on staying well hydrated with water get exercise, 30 minutes, try for 5 days a week reasonable goal is 10-20% weight loss which would be 40-80 lbs follow up with new PCP on 04/23 Pending Studies at Discharge: No Stand-Alone Forms: My [facility] Who@, Smoking Cessation Medications and DC Order Prescriptions: New metoprolol succinate 25 mg Tablet Extended Release 24 Hr 12.5 mg PO QAM 30 Days Qty: 15 RF: 3 Eliquis 5 mg Tablet 5 mg PO BID 30 Days Qty: 60 RF: 3 Continued atorvastatin 20 mg tablet 20 mg PO DAILY RF: 0 sertraline 100 mg tablet 50 mg PO DAILY RF: 0 lorazepam 0.5 mg tablet 0.5 mg PO DAILY PRN (Reason: Anxiety) RF: 0 amlodipine 10 mg tablet 10 mg PO DAILY RF: 0 lisinopril-hydrochlorothiazide 20-25 mg tablet 1 tab PO DAILY RF: 0 azelastine 137 mcg (0.1 %) aerosol,spray 1 spray INTRANASAL DAILY RF: 0 tadalafil 20 mg tablet 20 mg PO DAILY PRN (Reason: Erectile Dysfunction) RF: 0 Discharge Orders: Discharge Order (Routine); Ordered 04/17/21 Ordered By: Otilio Castillo Admission Data Admit Date/Time: 04/15/21 11:46 Attending Provider: Otilio Castillo Admit Provider: Greg Luz Primary Care Provider: Franklin Diego Other Providers: Greg Luz ; Shane Sosa Coding Level of Care Code D/C DAY MANAGEMENT >30 MINS Diagnoses PAF (paroxysmal atrial fibrillation) I48.0 Sleep apnea with use of continuous positive airway pressure (CPAP) G47.30 History of hypertension Z86.79 History of high cholesterol Z86.39 Morbid obesity E66.01
--- NOTE | 2021-04-17 12:09 | Cardiology Progress Note ---
Date of Service April 17, 2021 Assessment & Plan (1) PAF (paroxysmal atrial fibrillation): Plan: -also demonstrated paroxysmal atrial flutter. -sinus bradycardia with blocked PACs noted. -tolerating metoprolol succinate 12.5 mg daily -tolerating Eliquis 5 mg b.i.d.. -stable for hospital discharge. -follow-up with me in several weeks. (2) History of hypertension: Plan: -adequate control on current regimen. (3) History of high cholesterol: Plan: -continue atorvastatin. Admission and Anticipated Discharge Date Admission Date: April 15, 2021 Subjective The patient is resting comfortably at the bedside without complaints of chest pain, dyspnea, or palpitations. He is anxious for hospital discharge. Physical Exam Physical Exam: In general this is an obese white male lying supine in bed without complaints. HEENT exam is negative. Neck is supple with full carotid upstrokes. No carotid bruits. Jugular is pressure is flat at 90. There is no thyromegaly. Cardiovascular exam reveals a regular rhythm with a normal S1 and S2. No S3, S4, or murmurs are noted. Lungs are clear without rales, rhonchi, or wheezes. Abdomen is soft and nontender without bruits. Extremities reveal intact radial artery pulses bilaterally. There is no peripheral edema. Results & Data ([facility]) Vital Signs (Past 12 Hours) Vital Signs Temp Pulse Pulse Resp BP Pulse Ox 04/17/21 11:43 36.9 C 62 18 151/77 H 93 04/17/21 10:20 73 04/17/21 07:31 37.3 C 68 19 142/83 H 95 04/17/21 02:56 37.1 C 68 19 135/73 95 04/17/21 00:35 68 Diagnostic Findings lunchroom monitor notes several brief episodes of atrial fibrillation. And occasional blocked PAC is seen while sleeping. PG Care Time/CCT Total # of Minutes Spent Total Time Spent with Patient: Total time spent is greater than 50% in coordination of care (as documented) at patient's floor/unit and/or counseling patient: Coding Level of Care Code 09207 Subseq Hosp Care Lvl 3 Diagnoses PAF (paroxysmal atrial fibrillation) I48.0 History of hypertension Z86.79 History of high cholesterol Z86.39
== END 2021-04-17 13:51 | disposition home or self-care (01) ==
LOC: ED 09:06 → 2S 09:06 → SUATTDRO 11:46 → 2S 14:37